=== PATIENT | male | born 1945 | race Caucasian/White ===

== ENCOUNTER 2018-05-11 07:06 | Day surgery (SDC) | payer MEDICARE ==
[~2018-05-11] VITALS: Ht 172.7 cm; Wt 73.9 kg
[~2018-05-11 07:06] MED LIST: AMLODIPINE5 MG PO; ASPIRIN ADULT L81 M2 PO; COMBIVENT RESPIMAT IN; FOLIC ACID1 M1 PO; HYDRALAZINE10 M2 PO; HYDRALAZINE10 MG PO; LEVOTHYROXIN75 MC1 PO; LISINOPRIL10 M1 PO; METOPROLOL TART50 MG PO; RANITIDINE150 MG PO; SIMVASTATIN20 MG PO; SYMBICORT1 AE1 IN
[2018-05-11 09:54] VITALS: BP 127/68
== END 2018-05-11 10:08 | disposition home or self-care (01) ==
LOC: ENDO 07:06
PROVIDERS: ATTEND Internal Medicine Gastroenterology
PROC: 0DBN8ZX Excision of Sigmoid Colon, Via Natural or Artificial Opening Endoscopic, Diagnostic (ICD-10-PCS; principal; 2018-05-11)
PROC: 0DBH8ZX Excision of Cecum, Via Natural or Artificial Opening Endoscopic, Diagnostic (ICD-10-PCS; 2018-05-11)
DX: D12.7 Benign neoplasm of rectosigmoid junction (principal); D12.0 Benign neoplasm of cecum; D12.5 Benign neoplasm of sigmoid colon; K62.7 Radiation proctitis; Y84.2 Radiological procedure and radiotherapy as the cause of abnormal reaction of the patient, or of later complication, without mention of misadventure at the time of the procedure; K64.8 Other hemorrhoids; K64.4 Residual hemorrhoidal skin tags; K59.00 Constipation, unspecified; K21.9 Gastro-esophageal reflux disease without esophagitis; J44.9 Chronic obstructive pulmonary disease, unspecified; I10 Essential (primary) hypertension; Z85.118 Personal history of other malignant neoplasm of bronchus and lung; Z86.010 Personal history of colon polyps; Z85.46 Personal history of malignant neoplasm of prostate; Z79.899 Other long term (current) drug therapy